=== PATIENT | male | born 1935 | race Caucasian/White ===

== ENCOUNTER 2017-09-30 13:25 | Inpatient (IN) | payer MEDICARE, MEDICAID ==
[~2017-09-30] VITALS: Ht 165.1 cm; Wt 106.1 kg
[~2017-09-30 13:25] MED LIST: CLONIDINE0.1 PO; COREG3.125 MG PO; NORVASC2.5 MG PO; OXYCODONE HCL30 MG PO; VYTORIN 10-101 EACH PO; ZANTAC 150MG T150 MG PO
[2017-09-30 13:40] VITALS: BP 178/87
[2017-09-30] MEDS ORDERED: LISINOPRIL10 MG PO (13:46)
[2017-09-30] MEDS ORDERED: ASPIRIN81 M2 PO (13:46)
[2017-09-30 14:03] LABS: URINE BILIRUBIN NEGATIVE (Negative); URINE BLOOD TRACE (Negative); URINE CLARITY CLEAR; URINE COLOR YELLOW; URINE GLUCOSE-RANDOM NEGATIVE (Negative); URINE KETONES NEGATIVE (Negative); URINE LEUKOCYTES-REFLEX NEGATIVE (Negative); URINE NITRITE-REFLEX NEGATIVE (Negative); URINE PROTEIN NEGATIVE (Negative); URINE UROBILINOGEN 0.2 E.U./dl (0.2-1.0)
[2017-09-30 14:20] LABS: ABSOLUTE EOSINOPHILS 0.1 thou/uL (0.0-0.7); ABSOLUTE MONOCYTES 1.8 thou/uL (0.0-1.2); ABSOLUTE NEUTROPHILS 5.6 thou/uL (1.6-8.1); BASOPHILS 0.4 %; EOSINOPHILS 1.1 %; HEMATOCRIT 39.8 % (42.0-52.0); LYMPHOCYTES 34.7 %; MCH 27.7 pg (26.0-34.0); MCHC 32.7 g/dL (28.0-37.0); MCV 84.7 fL (80.0-100.0); MONOCYTES 15.5 %; NUCLEATED RBCS 0 /100WBC; PLATELET COUNT* 153 thou/uL (150-400); POLYS 48.3 %; RDW-CV 15.8 % (10.5-14.5); WBC 11.6 thou/uL (4.0-11.0)
[2017-09-30 14:41] LABS: CALCIUM 8.7 mg/dL (8.5-10.1); CREATININE 1.3 mg/dL (0.6-1.3)
[2017-09-30 14:45] LABS: ALBUMIN 3.3 g/dL (3.4-5.0); TOTAL BILIRUBIN 0.6 mg/dL (<0.1-1.0); TOTAL PROTEIN 7.5 g/dL (6.4-8.2)
[2017-09-30 16:22] VITALS: BP 123/59
[2017-09-30 16:45] VITALS: BP 147/59
--- NOTE | 2017-09-30 19:40 | NUR ---
PATIENT ARRIVED FROM ER THIS EVENING. PATIENT SETTLED TO ROOM. HISTORY, ASSESSMENT AND VITALS COMPLETED AND DOCUMENTED. PATIENT HAS BLE EDEMA WITH OPEN BLISTERS TO RLE. XEROFORM APPLIED TO BLISTERS AND KERLIX AND STEPHEN WRAPPED LEGS. PATIENT HAS COMPLAINTS OF CHRONIC BACK PAIN TREATED ADEQUATELY WITH OXYCODONE. PATIENT IS UP WITH MODERATE ASSIST FOR TRANSFERS. PATIENT HAS GOOD APPETITE. PATIENT DENIES ANY NEEDS AT THIS TIME. CALL LIGHT WITHIN REACH. WILL CONTINUE TO MONITOR.
[2017-09-30 20:05] VITALS: BP 154/73
[2017-09-30 23:28] VITALS: BP 143/66
--- NOTE | 2017-10-01 05:23 | NUR ---
PT SLEPT SOUNDLY DURING THE NIGHT, IV VANC GIVEN, INCONTINENT ONE TIME, ALSO USED THE URINAL, LEGS REMAINS WRAPPED AND C/D/I, UP WITH MAX ASSIST TO THE BSC, PT WEAK AND UNSTEADY, PRN PAIN MEDICATION PER REQUEST, CALL LIGHT IN REACH, BED ALARM ON FOR SAFETY, WILL CONTINUE TO MONITOR
[2017-10-01 07:45] VITALS: BP 135/60
--- NOTE | 2017-10-01 09:19 | NUR ---
INITIAL ASSESSMENT: Pt evaluated for d/c planning needs. Reviewed chart and spoke with nurse and pt. Pt is alert and oriented and [place]. Pt lives alone in apartment and has homemaker services 4.5 hours/day, 5 days/week. Pt said he does not have home health services and has no history of SNF. Pt plans on returning home on d/c from hospital. Will remain available to assist as needed.
[2017-10-01 15:54] VITALS: BP 109/61
--- NOTE | 2017-10-01 16:30 | NUR ---
WOUND NURSE: PATIENT SEEN TO ADDRESS PERIPHERAL EDEMA AND LARGE BULLAE ON THE RLE, AND 2 SMALL INTACT BULLAE ON THE LLE. RLE HAS 4 RUPTURED BULLAE FOLLOWS WITH COPIOUS AMOUNTS OF YELLOW DRAINAGE AND 3 + EDEMA PRESENT. PROXIMAL LATERAL MEASURES 5.0 X 6.1 X 0.1 CM. PROXIMAL-MEDIAL MEASURES 4.0 X 9.1 X 0.1 CM. DISTAL LATERAL: 7.0 X 14.0 X 0.1 CM. DISTAL MEDIAL: 5.5 X 8.1 X 0.1 CM. THERE ARE ALSO 2 INTACT BULLAE EACH MEASURING 1.0 X 1.0 CM ON THE LATERAL ASPEC OF THE LLE. BOTH LEGS WERE CLEANSED WITH SOAPA AND WATER, RINSED WITH WATER, THEN PATTED DRY. APPLIED LOTION TO INTACT SKIN TOES TO KNEE BLE, THEN APPLIED XEROFORM GAUZE UDNER ABD'S ON THE RLE WOUNDS. THEN WRAPPED BLE WITH KERLEX ROLL GAUZE UDNER STEPHEN WRAPS. PLAN FOR WOUNDS TO BE REDRESSED 3X/WEEK AND NEEDED.
--- NOTE | 2017-10-01 18:08 | NUR ---
PATIENT A&OX4, FLAT AFFECT. ROOM AIR, IV RIGHT AC IV ABX. UP WITH ASSISTX1, WEAK. C/O PAIN IN LOWER EXTREMITIES, PARTIAL RELIEF WITH MEDICATION. NO OTHER CONCERNS AT THIS TIME. APPROPRIATE AND COOPORATIVE WITH CARE.
[2017-10-01 20:15] VITALS: BP 146/64
[2017-10-02 03:50] LABS: HEMATOCRIT 33.9 % (42.0-52.0); HEMOGLOBIN 11.3 gm/dL (14.0-18.0); MCH 27.7 pg (26.0-34.0); MCHC 33.2 g/dL (28.0-37.0); MCV 83.5 fL (80.0-100.0); MPV 8.4 fl. (7.2-11.1); RBC 4.06 mil/uL (4.50-6.00); RDW-CV 15.5 % (10.5-14.5)
[2017-10-02 04:02] LABS: CALCIUM 8.3 mg/dL (8.5-10.1); CREATININE 1.2 mg/dL (0.6-1.3); POTASSIUM 3.7 mmol/L (3.5-5.1)
--- NOTE | 2017-10-02 05:16 | NUR ---
PT SLEPT ON AND OFF THROUGH SHIFT. ASSESSMENT DOCUMENTED. MEDS GIVEN PER E-NOV. PT REPORTED PAIN, PAIN MEDS GIVEN PER E-NOV. PT RECIEVED BED BATH. DRESSING ON LEGS C/D/I. PT AMULATED TO BATHROOM WITH ASSIST. NO CONCERNS AT THIS TIME, WILL CONTINUE TO MONITOR.
[2017-10-02 07:34] VITALS: BP 144/64
[2017-10-02 07:50] VITALS: BP 143/68
--- NOTE | 2017-10-02 12:53 | NUR ---
Anticipate that Pt will dc to home today, discussed HH, Pt stated "I don't want that, they don't even do anything for you." Family in room and will provide dc transportation.
[2017-10-02 16:00] VITALS: BP 172/70
[2017-10-02] MEDS ORDERED: KEFLEX500 M1 PO (17:09)
[2017-10-02] MEDS ORDERED: TYLENOL325 MG PO (17:44)
[2017-10-02] MEDS ORDERED: DULCOLAX5 MG PO (17:45)
[2017-10-02] MEDS ORDERED: MIRALAX17 GM PO (17:46)
--- NOTE | 2017-10-02 19:21 | NUR ---
PATEINT DISCHARGING TO HOME. PATIENT IS AWAITING RIDE. IV IS OUT. WILL GO OVER DISCHARGE PAPERWORK WHEN CAREGIVER ARRIVES.
--- NOTE | 2017-10-02 19:43 | NUR ---
PATIENT REFUSED DISCHARGE WOUND DRESSING CHANGE AND PICTURES,
[2017-10-02 21:39] VITALS: BP 144/64
--- NOTE | 2017-10-02 22:37 | NUR ---
WENT OVER DISCHARGE PAPERWORK, PT STATED UNDERSTANDING. PT INFORMED THAT PRESCRIPTIONS WERE CALLED INTO PHARMACY HE CHOSE. PT LEFT UNIT VIA WHEELCHAIR TO [employer] CAR WITH NURSING STAFF. NO CONCERNS AT THIS TIME.
--- NOTE | 2017-10-04 07:39 | CON ---
[address] [address] CONSULTATION Name: BARRETOFERNANDO Room: [address] IN .R.#: [id number] Admission: 09/30/17 Attend Phys: Eric Robledo Discharge: 10/02/17 Date of : 39 Report #: [id number] THIS REPORT FOR: //name// CC: Jigar Eaton DATE OF SERVICE: 10/01/2017 ATTENDING PHYSICIAN: Akhil Eaton MD REASON FOR EVALUATION: Bilateral lower extremity inflammatory eruptions likely has lymphedema, chronic venous insufficiency with dermatitis and probably complicating by skin and soft tissue infection with cellulitis particularly the right lower extremity with associated wounds. HISTORY OF PRESENT ILLNESS: Chart reviewed, patient examined. This is an 82-year-old man with a known history of lower extremity chronic swelling, partly has lymphedema who was admitted through the emergency room with complaints of increasing swelling and developed bullous type lesions in particular over the right side, subsequent denuded, has several ulcers that are superficial around the proximal leg. It is felt to be a component of infection. He was started empirically on vancomycin. He does admit to pain. It is not clear whether he has had significant systemic illness, no fevers or chills. Appetite has been fair. No pulmonary, no change in his overall gastrointestinal related status. He is undergoing compression of the lower extremities bilaterally. ALLERGIES: None. CURRENT MEDICATIONS: Include ceftriaxone, trazodone, enoxaparin, zolpidem, melatonin, cholecalciferol, aspirin, lisinopril, amlodipine, vancomycin, famotidine, atorvastatin, carvedilol and oxycodone. PAST MEDICAL HISTORY: As described above, some hypertension, chronic back pain, previous appendectomy, tonsillectomy and cataract surgery. SOCIAL HISTORY: Former smoker. No ethanol. FAMILY HISTORY: Noncontributory. REVIEW OF SYSTEMS: As above. PHYSICAL EXAMINATION: GENERAL: He is pleasant, alert, cooperative, appears somewhat chronically ill. VITAL SIGNS: Temperature 97.6, pulse 56, respirations 18 and blood pressure 109/61. SKIN: [place] [address] CONSULTATION Name: FERNANDO BARRETO Edmar Room: [address]#: [id number] Admission: 09/30/17 Attend Phys: Eric Robledo Discharge: 10/02/17 Date of : 39 Report #: [id number] HEENT: Otherwise, unremarkable. NECK: Supple. LUNGS: Diminished breath sounds. He has got a couple of crackles posteriorly at the bases. HEART: Regular. Borderline bradycardic. I do not appreciate a murmur. ABDOMEN: Soft and nontender. EXTREMITIES: Bilateral extremities have layered compression dressings to below the knee. There is some dermopathy noted around the toes. GENITOURINARY AND RECTAL: Deferred. LABORATORY DATA: Arterial Doppler is not remarkable. No evidence of femoral-popliteal disease. Blood cultures are sterile thus far. Plain film of the right foot, there is no acute process. The right tib-fib have no fractures. There was some soft tissue swelling. Electrolytes: Sodium 141, potassium 4.0, chloride 105, bicarbonate is 29, anion gap of 7, BUN and creatinine 22 and 1.3, glucose was elevated at 163. LFTs unremarkable. Albumin 3.3, total protein 7.5. Lactic acid 1.9. CBC: White count 11.6, H and H 13.0 and 39.8, platelets of 153 and a monocytosis of 1800, upper limits of normal being 1200. Urinalysis is negative for ketones, protein, leukocytes and trace blood. ASSESSMENT: Bilateral lower extremity inflammatory eruptions with superficial ulcerations. We will continue empiric antimicrobial therapy at this point given the overall change in status ____ concomitant secondary infectious complication. May well have some underlying venous stasis disease. Consider a calcium channel howard as well, may be in part related to the adverse drug effect. He notes that the onset just within the last couple of years. Continue compression and also elevation. Thank you, we will follow. <ELECTRONICALLY SIGNED> By: James Olson MD 10/04/17 0739 [id number] Olson MD /nt
--- NOTE | 2017-10-06 13:02 | CON ---
[address] [address] CONSULTATION Name: FERNANDO BARRETO Room: [address] IN M.R.#: [id number] Admission: 09/30/17 Attend Phys: Eric Robledo Discharge: 10/02/17 Date of : 39 Report #: [id number] THIS REPORT FOR: //name// CC: Jigar Eaton CHIEF COMPLAINT: Podiatric consultation for bilateral lower extremity wounds with cellulitis and venous insufficiency. I reviewed the medical notes, the patient is scheduled for discharge today. Jerad, he wound nurse, changed his leg bandages yesterday. The patient is scheduled to follow up with me next Wednesday at [facility]. He is currently on parenteral ceftriaxone, discharge antibiotics will be managed by Infectious Disease. I will see him next Wednesday for his wound care. I do not recommend any changes to the current wound care protocol. <ELECTRONICALLY SIGNED> By: Anant Desai DPM 10/06/17 1302 [id number] Desai DPM /nt
== END 2017-10-02 21:39 | disposition home or self-care (01) | DRG 603 ==
LOC: M.ERS 13:25 → M.3W 14:04 → M.TBA-ER 14:04 → M.3W 16:27
PROVIDERS: Emergency Medicine; ADMIT Internal Medicine
DX: L03.116 Cellulitis of left lower limb (principal); L97.929 Non-pressure chronic ulcer of unspecified part of left lower leg with unspecified severity; L97.919 Non-pressure chronic ulcer of unspecified part of right lower leg with unspecified severity; I89.0 Lymphedema, not elsewhere classified; L03.115 Cellulitis of right lower limb; I10 Essential (primary) hypertension; G89.29 Other chronic pain; M54.9 Dorsalgia, unspecified; D64.9 Anemia, unspecified; K59.00 Constipation, unspecified; I87.8 Other specified disorders of veins; Z90.49 Acquired absence of other specified parts of digestive tract; Z79.899 Other long term (current) drug therapy; Z98.49 Cataract extraction status, unspecified eye; Z87.81 Personal history of (healed) traumatic fracture; Z82.49 Family history of ischemic heart disease and other diseases of the circulatory system

== ENCOUNTER → 2017-10-12 | Outpatient (CLI) | payer MEDICARE, MEDICAID ==
[~2017-10-12] MED LIST changes: +ASPIRIN81 M2 PO; +DULCOLAX5 MG PO; +KEFLEX500 M1 PO; +LISINOPRIL10 MG PO; +MIRALAX17 GM PO; +TYLENOL325 MG PO
== END ==
LOC: M.WC 08:29
DX: I87.2 Venous insufficiency (chronic) (peripheral) (principal); L97.211 Non-pressure chronic ulcer of right calf limited to breakdown of skin; I89.0 Lymphedema, not elsewhere classified; I10 Essential (primary) hypertension

== ENCOUNTER → 2017-11-02 | Outpatient (CLI) | payer MEDICARE, MEDICAID | LOC: M.WC 01:26 | DX: I87.2 Venous insufficiency (chronic) (peripheral) (principal); L97.211 Non-pressure chronic ulcer of right calf limited to breakdown of skin; L97.821 Non-pressure chronic ulcer of other part of left lower leg limited to breakdown of skin; I89.0 Lymphedema, not elsewhere classified; I10 Essential (primary) hypertension ==

== ENCOUNTER → 2017-11-16 | Outpatient (CLI) | payer MEDICARE, MEDICAID | LOC: M.WC 02:47 | DX: L97.211 Non-pressure chronic ulcer of right calf limited to breakdown of skin (principal); L97.821 Non-pressure chronic ulcer of other part of left lower leg limited to breakdown of skin; I87.2 Venous insufficiency (chronic) (peripheral); I89.0 Lymphedema, not elsewhere classified; I10 Essential (primary) hypertension ==

== ENCOUNTER → 2017-11-23 | Outpatient (CLI) | payer MEDICARE, MEDICAID | LOC: M.WC 02:27 | DX: L97.211 Non-pressure chronic ulcer of right calf limited to breakdown of skin (principal); L97.821 Non-pressure chronic ulcer of other part of left lower leg limited to breakdown of skin; I87.2 Venous insufficiency (chronic) (peripheral); I89.0 Lymphedema, not elsewhere classified; I10 Essential (primary) hypertension; G89.29 Other chronic pain ==

== ENCOUNTER 2019-06-14 16:07 | Inpatient (IN) | payer MEDICARE, MEDICAID ==
[~2019-06-14] VITALS: Ht 165.1 cm; Wt 97.5 kg
[~2019-06-14 16:07] MED LIST changes: +NORVASC10 MG PO; -NORVASC2.5 MG PO
[2019-06-14 16:11] VITALS: BP 111/63
[2019-06-14] MEDS ORDERED: LISINOPRIL10 MG PO (16:16)
[2019-06-14] MEDS ORDERED: COREG25 MG PO (16:16)
[2019-06-14] MEDS ORDERED: OXYCONTIN10 M1 PO (16:17)
[2019-06-14 16:49] LABS: HEMATOCRIT 39.8 % (42.0-52.0); HEMOGLOBIN 13.5 gm/dL (14.0-18.0); MCH 29.1 pg (26.0-34.0); MCV 85.5 fL (80.0-100.0); MPV 7.9 fl. (7.2-11.1); NUCLEATED RBCS 0 /100WBC; PLATELET COUNT* 168 thou/uL (150-400); RBC 4.65 mil/uL (4.50-6.00); RDW-CV 15.6 % (10.5-14.5); WBC 8.9 thou/uL (4.0-11.0)
[2019-06-14 17:00] LABS: APTT 26.4 Seconds (25.0-31.3); INR 1.1
[2019-06-14 17:03] LABS: ALBUMIN 3.5 g/dL (3.4-5.0)
[2019-06-14 17:12] LABS: CALCIUM 8.9 mg/dL (8.5-10.1); CREATININE 1.3 mg/dL (0.6-1.3)
[2019-06-14 17:17] LABS: TOTAL BILIRUBIN 0.6 mg/dL (<0.1-1.0); TOTAL PROTEIN 7.3 g/dL (6.4-8.2)
[2019-06-14 17:25] LABS: ABSOLUTE EOSINOPHILS 0.1 thou/uL (0.0-0.7); ABSOLUTE LYMPHOCYTES 4.4 thou/uL (0.8-5.3); ABSOLUTE MONOCYTES 0.4 thou/uL (0.0-1.2); ABSOLUTE NEUTROPHILS 4.1 thou/uL (1.6-8.1)
[2019-06-14 17:26] LABS: PLATELET ESTIMATE ADEQUATE
[2019-06-14 17:52] LABS: ESR (SEDRATE) 5 mm/hr (0-20)
[2019-06-14 18:26] VITALS: BP 111/63
[2019-06-14 18:44] VITALS: BP 138/62
[2019-06-14] MEDS ORDERED: AMOX TR-K CLV1 EAC4 PO (19:02)
[2019-06-14] MEDS ORDERED: ZANTAC 150MG T150 MG PO (19:02)
[2019-06-14] MEDS ORDERED: VIT D2 PO (19:03)
[2019-06-14] MEDS ORDERED: ASPIRIN81 M2 PO (19:13)
[2019-06-14 21:30] VITALS: BP 118/77
[2019-06-15 04:10] LABS: ABSOLUTE EOSINOPHILS 0.1 thou/uL (0.0-0.7); ABSOLUTE LYMPHOCYTES 3.5 thou/uL (0.8-5.3); ABSOLUTE MONOCYTES 1.1 thou/uL (0.0-1.2); BASOPHILS 0.5 %; EOSINOPHILS 1.3 %; HEMATOCRIT 35.8 % (42.0-52.0); HEMOGLOBIN 12.1 gm/dL (14.0-18.0); LYMPHOCYTES 45.4 %; MCH 29.2 pg (26.0-34.0); MCHC 33.8 g/dL (28.0-37.0); MCV 86.5 fL (80.0-100.0); MONOCYTES 14.7 %; MPV 8.3 fl. (7.2-11.1); NUCLEATED RBCS 0 /100WBC; PLATELET COUNT* 152 thou/uL (150-400); POLYS 38.1 %; RBC 4.14 mil/uL (4.50-6.00); RDW-CV 15.1 % (10.5-14.5); WBC 7.8 thou/uL (4.0-11.0)
[2019-06-15 04:21] LABS: ANION GAP 9 mmol/L (7-16); BUN 17 mg/dL (7-18); CALCIUM 8.6 mg/dL (8.5-10.1); CHLORIDE 106 mmol/L (98-107); CHOLESTEROL 124 mg/dL (<200); CO2 28 mmol/L (21-32); CREATININE 1.1 mg/dL (0.6-1.3); GLUCOSE 99 mg/dL (70-99); HDL CHOLESTEROL 24 mg/dL (>40); LDL CHOLESTEROL 82 mg/dL (<100); MAGNESIUM 2.1 mg/dL (1.8-2.4); POTASSIUM 3.7 mmol/L (3.5-5.1); SODIUM 143 mmol/L (136-145); TC:HDL 5.2 Ratio (Not establshd); TRIGLYCERIDE 94 mg/dL (<150); VLDL 19 mg/dL (<40)
[2019-06-15 04:29] LABS: SERUM ASSESSMENT CLEAR
--- NOTE | 2019-06-15 06:33 | NUR ---
PATIENT ARRIVED ON FLOOR PRIOR TO SHIFT CHANGE. PATIENT ADMISSION HISTORY AND ASSESSMENT WAS COMPLETED CHARTED. PICTURES WERE TAKEN OF LEFT ANKLE/CALF WOUND AND BILATERAL LEG DISCORLATION. IV ANTIBIOTICS WERE GIVEN ORDERED. PATIENT WAS GIVEN PAIN MEDICINE FOR CHRONIC BACK PAIN TWICE. THIS SHIFT. WILL CONTINUE TO MONITOR.
[2019-06-15 08:30] VITALS: BP 154/64
--- NOTE | 2019-06-15 11:38 | NUR ---
SW attempted to meet with pt, pt sleeping soundly and did not awaken to several attempts. Pt lives at home alone and has listed a caregiver and a friend as support contacts. Pt had HH needs prior to hospitalization, previous records indicate pt declined services being arranged at last dc, but possible pt is active with a HH nurse at this time, nurse assessment says that pt does not recall name of the agency. SW to continue to follow to ask/inform pt about AD/DPOA and to assist with safe dc planning.
--- NOTE | 2019-06-15 12:30 | NUR ---
WOUND CARE NOTE: CONSULT RECEIVED FOR LYMPHEDEMA, LEFT FOOT WOUND. PATIENT PRESENTS WITH CHRONIC VENOUS STASIS SKIN CHANGES TO BILATERAL LOWER EXTREMITIES. HEMOSIDERIN STAINING, DRY, SCALEY ECZAMATOUS SKIN. POSTERIOR ASPECT OF LEFT LEG OVER ACHILLES TENDON AREA IS AN AREA OF MACERATION WITH MULTIPLE PINPOINT OPENINGS DRAINING BROWN/SEROUS DRAINAGE, SMALL AMOUNTS. PATIENT ADMITS THAT THIS LEG HURTS MORE THAN THE OTHER. NO FLUCTUANCE OR INDURATION NOTED. AREA WAS CLEANSED WITH WOUND CLEANSER, PATTED DRY. APPLIED OPTIFOAM AG AND SECURED WITH KERLIX. PALPABLE PEDAL PULSE NOTED. ALSO APPEARS THAT HE IS GETTING HIS LEGS WRAPPED, PATIENT STATES THAT HE HAS SOMEONE COME IN WEDNESDAY AND THURSDAYS AND SHE CHANGES HIS WRAPS. UNSURE OF ETIOLOGY OF WOUND, XRAYS DO NOT SUGGEST OSTEOMYELITIS OR ABSCESS. SPOKE WITH HEALTH COMPANION ON FINDINGS. PLANS TO SEE TONIGHT. RECOMMEND COMPRESSION THERAPY ONCE ALL CONSULTS ASSESS ENCOURAGE GOOD NUTRTION/HYDRATION MRI?
[2019-06-15 16:00] VITALS: BP 126/58
--- NOTE | 2019-06-15 17:59 | NUR ---
I ASSUMED CARE OF THE PATIENT AT 0700. HE IS ALERT AND ORIENTED X4 AND IS ON BEDREST FOR A POSSIBLE BROKEN FOOT. HOURLY ROUNDING IS COMPLETED AND PATIENT NEEDS ARE MET. PAIN IS MANAGED WITH PRN MEDS. BED IS IN THE LOW LOCKED POSITION AND CALL LIGHT IS IN REACH. I WORKED WITH WOUND CARE ON ASSESSING, CLEANSING AND WRAPPING THE LEFT LEG. NEW ORDERS WERE OBTAINED FOR THE SANGITA AREA. THE URINAL WAS EMPTIED MULTIPLE TIMES. WILL CONTINUE TO MONITOR. SPOKE WITH DR FELIX REGARDING AN ORTHO CONSULT. THERAPY DIDN'T WORK WITH THE PATIENT D/T THE POSSIBLE BROKEN BONE.
[2019-06-15 21:00] VITALS: BP 133/63
[2019-06-16 02:10] LABS: GLYCOHEMOGLOBIN (HGB A1C) 5.7 % (4.8-5.6)
--- NOTE | 2019-06-16 05:41 | NUR ---
PATIENT SLEPT MOST OF THE NIGHT. IV AMTIBIOTICS WERE GIVEN ORDERED. PATIENT WAS GIVEN PRN PAIN MEDS TWICE THIS SHIFT. DRESSING TO LEFT ANKLE WOULD REMAINS IN PLACE. WILL CONTINUE TO MONITOR.
--- NOTE | 2019-06-16 07:15 | CON ---
[address] [address] CONSULTATION Name: FERNANDO BARRETO Room: [address] IN [facility]#: [id number] Admission: 06/14/19 Attend Phys: Malena Manzanares MD Discharge: Date of : 39 Report #: [id number] THIS REPORT FOR: //name// CC: Jigar Manzanares DATE OF SERVICE: 06/15/2019 ADMISSION DIAGNOSIS: Left lower extremity cellulitis with ulceration. HISTORY OF PRESENT ILLNESS: An 83-year-old male admitted for lower extremity cellulitis with ulceration to the left posterior heel. 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 He relates chronic back pain and generalized debility, so he is minimally ambulatory with a walker in his home. He is on parenteral vancomycin with good tolerance. Wound culture is pending. Blood culture negative x 2. He feels well, stable appetite. He denies fevers, chills, nausea or malaise. He was seen by the wound nurse today, who applied foam and Kerlix to the left posterior heel wound. LABORATORY DATA: WBC 7.8, RBC 4.14, hemoglobin 12.1, hematocrit 35.8, platelets 152,000. BUN 17, creatinine 1.1, glucose 99, albumin 3.5. 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 He has severe lichenification of his dorsal feet and ankles with toenail dystrophy. There are two pinpoint wounds to the left posterior calcaneus with scant drainage on his bandage. There is no fluctuance, crepitation or signs of deep tissue infection. He has a palpable right dorsalis pedis pulse, I cannot palpate the left or the posterior tibial pulses. His feet are warm, no pallor or cyanosis. Review of his chart shows no indication for vascular surgical intervention per prior Vascular Surgery consult. IMPRESSION: Cellulitis bilateral lower extremities, venous insufficiency with lichenification. PLAN: I recommend a topical steroid, such as triamcinolone, to his legs daily with compression wraps. I recommend bathing with antibacterial soap when his legs are unwrapped. Continue parenteral antibiotics, monitor skin. The patient will follow up as an outpatient with me at [facility]. <ELECTRONICALLY SIGNED> By: Anant Desai DPM 06/16/19 0715 [id number] Desai DPM /nt
[2019-06-16 07:30] VITALS: BP 147/70
--- NOTE | 2019-06-16 07:33 | CON ---
[address] [address] CONSULTATION Name: FERNANDO BARRETO Room: [address] IN .R.#: [id number] Admission: 06/14/19 Attend Phys: Malena Manzanares MD Discharge: Date of : 39 Report #: [id number] THIS REPORT FOR: //name// CC: Jigar Manzanares DATE OF SERVICE: 06/15/2019 INFECTIOUS DISEASE CONSULTATION ATTENDING PHYSICIAN: Malena Manzanares MD REASON FOR EVALUATION: Left lower extremity inflammatory eruption in a setting of chronic venous stasis with hypertrophic dermopathy. HISTORY OF PRESENT ILLNESS: Chart reviewed, the patient examined. This is an 83-year-old man with a history of chronic back pain, also has known history of bilateral lower extremity dermatitis, has been complicated by intermittent wounds over the course of the last 4-5 years, he cannot date this most recent episode. He was hospitalized in an outside facility, left there when he was unable to get his medicines, which I think specifically were his pain medicines. He was admitted. He has kbfhijol-ab-dowtil degree of pain associated with his legs and may have had low-grade temperature elevations as well. Suggests he has a poor appetite, mild breathing difficulties. Did undergo evaluation. CRP less than 2. Lactic acid 0.6. X-ray, there is question of a possible nondisplaced calcaneal fracture; otherwise, plain films were unremarkable, nothing to suggest chronic osteomyelitis. Blood cultures were collected, sterile thus far. He was borderline anemic at 13.5. He is empirically on antibiotics including vancomycin and Zosyn. ALLERGIES: None known. CURRENT MEDICINES: Include aspirin, lisinopril, amlodipine, multivitamin, duloxetine, carvedilol, vancomycin, clonidine, enoxaparin, famotidine, ascorbic acid, Zosyn, oxycodone, ondansetron as needed. PAST MEDICAL HISTORY: As described above, chronic back pain, hypertension, bilateral cataract surgery, history of TIAs. SOCIAL HISTORY: Nonsmoker, no ethanol, no illicit drug use. FAMILY HISTORY: Noncontributory. REVIEW OF SYSTEMS: Otherwise, unremarkable 10-point review of systems with exception of the above [place] [address] CONSULTATION Name: FERNANDO BARRETO Room: [address]#: [id number] Admission: 06/14/19 Attend Phys: Malena Manzanares MD Discharge: Date of : 39 Report #: [id number] PHYSICAL EXAMINATION: GENERAL: Appears chronically ill, undernourished. During the interview, he seemed to improve in terms of his encephalopathy, VITAL SIGNS: Temperature 97.7, pulse 58, respirations 16, blood pressure 154/64. SKIN: Warm, dry. HEENT: Normocephalic. Extraocular muscles are intact. NECK: Supple. LUNGS: Diminished breath sounds. Scattered crackles at the bases. HEART: Regular. I do not appreciate any murmur. Borderline bradycardic. ABDOMEN: Soft, nontender. There are no peritoneal signs. EXTREMITIES: Bilateral lower extremities were evaluated. Has chronic thickening of the skin with some scaling, suspect underlying venous stasis insufficiency with dermatitis. Little bit of wrinkling, which suggests a recent decrease in overall edema. GENITOURINARY: Deferred. RECTAL: Deferred. LABORATORY DATA: Blood cultures sterile thus far. TSH of 2.155. Electrolytes: Sodium 143, potassium 3.7, chloride 106, bicarb is 28, anion gap of 9, BUN and creatinine 17 and 1.1. CBC: White count of 7.8, H and H 12.1 and 35.8, platelets of 152. CBC: White count of 8.9, H and H 13.5 and 39.8, platelets of 168. Sed rate of 5. Lactic acid 0.6. Liver functions unremarkable. Albumin of 3.5, total protein of 7.3, estimated GFR of 53. ASSESSMENT: Bilateral lower extremity chronic dermopathy, likely basis of venous stasis insufficiency, perhaps arterial compromise as well. It is reasonable to continue empiric antimicrobial therapy. We will check arterial Dopplers; noted, otherwise unremarkable roughly 18 months ago, means quite tenuous. Thank you. We will follow. <ELECTRONICALLY SIGNED> By: James Olson MD 06/16/19 0733 [id number] Olson MD /nt
[2019-06-16 15:53] VITALS: BP 137/67
--- NOTE | 2019-06-16 16:47 | NUR ---
ASSESSMENT COMPLETE. PT ALERT AND ORIENTED X. PT GIVEN PRN PAIN MEDICATION NEEDED. PT SLEPT MOST OF THE DAY. BATH GIVEN THIS MORNING. PT IN CHAIR PART OF THE DAY. PT IS ON ROOM AIR, VSS. IV ABX GIVEN SCHEDULED. WOUND CARE COMPLETED. PT TURNS SELF IN BED. UP ONE ASSIST WITH WALKER AND GAIT BELT. PT IS IN BED WITH NO OTHER CONCERNS AT THIS TIME. SEE ASSESSMENT AND VITALS FOR OTHER DETAILS. CALL LIGHT WITHIN REACH, WILL CONTINUE PLAN OF CARE
[2019-06-16 20:09] VITALS: BP 147/70
--- NOTE | 2019-06-17 02:50 | NUR ---
WHILE GIVING PATIENT HIS PAIN MEDICATION, PATIENT STATED "I DON'T KNOW WHY THEY ARE MAKING ME WAIT 6 HOURS, I AM STARTING TO GO THROUGH WITHDRAWAL"
--- NOTE | 2019-06-17 04:34 | NUR ---
ASSUMED PATIENT CARE AT 1900. KG ALERT AND ORIENTED TIMES FOUR. VERBALIZED "I AM NEVER GOING TO GET ANY BETTER, I NEED TO GET UP AND WALK, I AM SO WEAK." ALSO STATED THAT HE WAS GOING TO GO HOME TODAY. PRODUCT SAFETY PROFESSIONAL AND HOURLY ROUNDING COMPLETED CHARTED
[2019-06-17 04:36] LABS: HEMATOCRIT 40.6 % (42.0-52.0); HEMOGLOBIN 13.8 gm/dL (14.0-18.0); MCH 28.9 pg (26.0-34.0); MPV 7.7 fl. (7.2-11.1); NUCLEATED RBCS 0 /100WBC; PLATELET COUNT* 171 thou/uL (150-400); RBC 4.78 mil/uL (4.50-6.00); RDW-CV 15.3 % (10.5-14.5); WBC 10.5 thou/uL (4.0-11.0)
[2019-06-17 04:55] LABS: CALCIUM 8.9 mg/dL (8.5-10.1); CREATININE 1.1 mg/dL (0.6-1.3); POTASSIUM 3.7 mmol/L (3.5-5.1)
[2019-06-17 06:02] LABS: ABSOLUTE BASOPHILS 0.1 thou/uL (0.0-0.2); ABSOLUTE EOSINOPHILS 0.1 thou/uL (0.0-0.7); ABSOLUTE LYMPHOCYTES 4.1 thou/uL (0.8-5.3); ABSOLUTE MONOCYTES 0.5 thou/uL (0.0-1.2); ABSOLUTE NEUTROPHILS 5.7 thou/uL (1.6-8.1); ATYPICAL LYMPHS 14 %; PLATELET ESTIMATE ADEQUATE
[2019-06-17 07:30] VITALS: BP 140/67; BP 151/67
[2019-06-17 10:09] VITALS: BP 140/67
--- NOTE | 2019-06-17 12:07 | NUR ---
PATIENT DRESSING CHANGED TO LEFT ANKLE, PHOTOS TAKEN PER PROTOCOL AND DRESSINGS/COMPRESSION PLACED. IV DC'D. PATIENT UP AND AMBULATING WITHOUT DIFFICULTY WITH WALKER. CM HERE TO SEE PATIENT, PATIENT TO CALL CM WHEN HOME STATED HE DID NOT REMEMBER WHO HIS HOME HEALTH WAS. PATIENT VERBALIZES UNDERSTANDING OF PAPERWORK, NO SCRIPTS RESUME PREVIOUS ABX. PATIENT TAKEN OUT VIA WHEELCHAIR TO [facility].
--- NOTE | 2019-06-17 13:06 | NUR ---
MET WITH PT PRIOR TO HIS DC TO SET UP HH. HE STATED HE COULDN'T REMEMBER THE NAME OF THE AGENCY BUT COULD CALL CM WHEN HE GOT HOME. HE DID CALL AND GIVE CM A NUMBER FOR MARITZA, HIS NURSE AT [phone], HAD TO LEAVE MESSAGE. WILL ARRANGE ONCE ABLE TO TRACK DOWN THE AGENCY NAME
== END 2019-06-17 12:09 | disposition home health service (06) | DRG 603 ==
LOC: M.ERS 16:07 → M.TBA-ER 17:09 → M.3W 17:09
PROVIDERS: Internal Medicine; Nurse Practitioner Family; ADMIT Family Medicine
DX: L03.116 Cellulitis of left lower limb (principal); I87.8 Other specified disorders of veins; I87.2 Venous insufficiency (chronic) (peripheral); I89.0 Lymphedema, not elsewhere classified; N18.3 Chronic kidney disease, stage 3 (moderate); I12.9 Hypertensive chronic kidney disease with stage 1 through stage 4 chronic kidney disease, or unspecified chronic kidney disease; F41.9 Anxiety disorder, unspecified; L03.115 Cellulitis of right lower limb; Z90.49 Acquired absence of other specified parts of digestive tract; Z98.41 Cataract extraction status, right eye; Z98.42 Cataract extraction status, left eye; Z79.899 Other long term (current) drug therapy; Z79.82 Long term (current) use of aspirin; Z79.891 Long term (current) use of opiate analgesic